=== PATIENT | male | born 1960 | race Asian ===

== ENCOUNTER 2018-10-01 06:42 | Emergency (ER) | payer OTHER ==
[~2018-10-01] VITALS: Ht 167.6 cm; Wt 90.7 kg
[2018-10-01 06:56] VITALS: Ht 167.6 cm; Wt 90.7 kg
[2018-10-01 07:35] LABS: BASOPHIL % 0.4 % (0-2); PLATELET COUNT 279 x10^3mcL (130-400); RED CELL DISTRIBUTION WIDTH 13.6 % (11.5-14.5)
[2018-10-01 07:44] LABS: CALCIUM 8.7 mg/dL (8.5-10.1); CARBON DIOXIDE 26.8 mmol/L (21-32); CHLORIDE SERUM 103 mmol/L (98-107); GFR1 > 60 mL/min; GLUCOSE SERUM 97 mg/dL (74-106); POTASSIUM SERUM 4.2 mmol/L (3.5-5.1); SODIUM SERUM 136 mmol/L (136-145)
[2018-10-01 07:48] LABS: ALBUMIN 3.8 g/dL (3.4-5.0); ALKALINE PHOSPHATASE 98 U/L (46-116); AST/SGOT 7 U/L (15-37); BILIRUBIN TOTAL 0.24 mg/dL (0.20-1.00); TOTAL PROTEIN, SERUM 7.1 g/dL (6.4-8.2)
[2018-10-01 07:59] LABS: ALT/SGPT 17 U/L (16-63)
[2018-10-01 09:28] VITALS: BP 133/88
== END 2018-10-01 09:28 | disposition home or self-care (01) ==
LOC: ED 06:42
PROVIDERS: Specialist
DX: G40.909 Epilepsy, unspecified, not intractable, without status epilepticus (principal); T42.0X1A Poisoning by hydantoin derivatives, accidental (unintentional), initial encounter; Y92.89 Other specified places as the place of occurrence of the external cause
CPT/HCPCS: 36415; J7030